=== PATIENT | female | born 1980 | race African-American/Black ===

== ENCOUNTER 2016-10-03 19:59 | Emergency (ER) | payer OTHER ==
[~2016-10-03] VITALS: Ht 162.6 cm; Wt 97.5 kg
--- NOTE | ~2016-10-03 | EKG ---
[place] [address] [facility] [employer] [place] [address] ELECTROCARDIOGRAM REPORT Name: MEE MARIANO [id number] Admission: 10/03/16 Attend Phys: Discharge: 10/03/16 Date of : 76 Report #: [id number] THIS REPORT FOR: //name// [facility] ED Test Date: 2016-10-03 Test Time: 22:26:16 Pat Name: MEE MARIANO Department: Room: Gender: F [employer] Apprentice: guillermo velazquez rn : 1980 Requested By: Michaela Qureshi Order Number: [id number] MD: Lucas Vivar Measurements Intervals [place] Rate: 86 P: 57 [place]: 145 QRS: 48 QRSD: 85 T: 84 QT: 487 QTc: 583 Interpretive Statements Sinus rhythm Nonspecific T wave abnormality Prolonged QT interval Baseline wander in lead(s) V1,V2 No previous ECG available for comparison Electronically Signed On 10-04-2016 8:33:07 CDT by Lucas Vivar [email or web address] <ELECTRONICALLY SIGNED> By: Lucas Vivar MD, [facility] 10/04/16 0833 25 25 Lucas Vivar MD, [facility] /EPI
[2016-10-03] MEDS ORDERED: CLONAZEPAM 0.50.5 M1 PO (23:10)
[2016-10-03 23:29] VITALS: BP 99/66
== END 2016-10-03 23:33 | disposition home or self-care (01) ==
LOC: ER 19:59
DX: F41.9 Anxiety disorder, unspecified (principal); E86.0 Dehydration; R55 Syncope and collapse; K50.90 Crohn's disease, unspecified, without complications; F17.210 Nicotine dependence, cigarettes, uncomplicated